=== PATIENT | female | born 1995 | race Caucasian/White ===

== ENCOUNTER 2019-08-18 19:28 | Emergency (ER) | payer SELFPAY ==
--- NOTE | 2019-08-18 20:17 | RAD ---
RIGHT ELBOW FOUR VIEWS: History: Fall with elbow pain. FINDINGS: There are no signs of fracture, dislocation, or joint effusion. IMPRESSION: Negative right elbow. POS: [facility]
--- NOTE | 2019-08-18 20:18 | RAD ---
RIGHT HAND THREE VIEWS: History: Fell from a skateboard. Hand and elbow injury. FINDINGS: There are no signs of fracture or dislocation. IMPRESSION: Negative right hand. POS: [facility]
== END 2019-08-18 20:35 | disposition home or self-care (01) ==
LOC: NAV ERS 19:28
DX: S60.221A Contusion of right hand, initial encounter (principal); S50.01XA Contusion of right elbow, initial encounter; E03.9 Hypothyroidism, unspecified; F32.9 Major depressive disorder, single episode, unspecified; Z79.899 Other long term (current) drug therapy; W09.8XXA Fall on or from other playground equipment, initial encounter; Y93.51 Activity, roller skating (inline) and skateboarding; Y99.8 Other external cause status